=== PATIENT | male | born 1955 | race Native Hawaiian/Other Pacific Islander ===

== ENCOUNTER 2022-11-04 09:44 | Outpatient (CLI) | payer MEDICARE, BC, SELFPAY | END 2022-11-04 09:45 | disposition home or self-care (01) | LOC: RAD 09:53 → INJ CL 10:03 | PROVIDERS: Visit Provider Family Medicine | DX: M54.16 Radiculopathy, lumbar region (principal); M51.36 Other intervertebral disc degeneration, lumbar region | CPT/HCPCS: 64483; J1100; Q9966 ==